=== PATIENT | female | born 2000 | race Caucasian/White ===

== ENCOUNTER 2019-07-17 21:03 | Emergency (ER) | payer OTHER ==
[~2019-07-17] VITALS: Ht 154.9 cm; Wt 45.4 kg
== END 2019-07-17 22:56 | disposition home or self-care (01) ==
LOC: ER 21:03
DX: S00.83XA Contusion of other part of head, initial encounter (principal); V49.88XA Car occupant (driver) (passenger) injured in other specified transport accidents, initial encounter; Y93.89 Activity, other specified; Y92.488 Other paved roadways as the place of occurrence of the external cause; Y99.8 Other external cause status